=== PATIENT | female | born 1995 | race Caucasian/White ===

== ENCOUNTER 2016-08-20 17:12 | Emergency (ER) | payer BC | END 2016-08-20 23:07 | disposition home or self-care (01) | LOC: ER1 17:12 | DX: R07.89 Other chest pain (principal); R81 Glycosuria; E11.9 Type 2 diabetes mellitus without complications | CPT/HCPCS: 36415; 71010; 81001; 83690; 84703; 85379; 93005; 96361; 96374; 96375; 99285; C9113; J1885 ==